=== PATIENT | female | born 1965 | race Caucasian/White ===

== ENCOUNTER → 2019-07-06 11:12 | Outpatient (CLI) | payer OTHER, MEDICAID, SELFPAY ==
[2019-07-06 12:24] LABS: Alanine Aminotransferase 25 IU/L (<35); Glucose 85 mg/dL (70-100)
[2019-07-06 12:42] LABS: Free T3, Triiodothyronine Free 3.77 pg/mL (2.77-5.27); T4 Total Thyroxine 7.87 ug/dL (5.5-11.0)
[2019-07-06 12:56] LABS: Thyroid Stimulating Hormone 2.34 uIU/mL (0.47-4.68)
[2019-07-06 13:00] LABS: Ferritin 11.3 ng/mL (11.1-264)
[2019-07-08 17:46] LABS: Insulin Level Total 3.6 uIU/mL (2.0-19.6)
[2019-07-09 16:17] LABS: EBV Virus IgM Ab < 36.00 U/mL (< 36.00)
== END ==
PROVIDERS: PCP Naturopath; Visit Provider Naturopath
DX: R53.83 Other fatigue (principal); R63.5 Abnormal weight gain
CPT/HCPCS: 36415; 82465; 82728; 82947; 83525; 83718; 84436; 84443; 84460; 84478; 84481; 86664; 86665

== ENCOUNTER → 2021-04-09 15:43 | Outpatient (CLI) | payer OTHER, MEDICAID, SELFPAY ==
[2021-04-09 18:21] LABS: Hematocrit 37.2 % (36-46); Hemoglobin 12.3 g/dL (12.0-16.0)
[2021-04-09 18:34] LABS: Iron 62 ug/dL (37-170)
[2021-04-09 18:44] LABS: Percent Iron Saturation 17 % (15-50); Total Iron Binding Capacity 359 ug/dL (265-497)
[2021-04-09 19:10] LABS: Ferritin 22 ng/mL (11-264)
== END ==
PROVIDERS: PCP Naturopath; Referring Provider Naturopath; Visit Provider Naturopath
DX: D50.9 Iron deficiency anemia, unspecified (principal); R53.83 Other fatigue; R63.5 Abnormal weight gain; J32.9 Chronic sinusitis, unspecified
CPT/HCPCS: 36415; 82728; 83540; 83550; 85014; 85018

== ENCOUNTER → 2021-09-17 11:30 | Outpatient (CLI) | payer OTHER, MEDICAID, SELFPAY ==
--- NOTE | 2021-09-17 | DI.CT.S_ITS ---
PROCEDURE: CT SINUS SCREEN WO CON INDICATIONS: Chronic pansinusitis TECHNIQUE: Noncontrast 3.0 mm axial images acquired from the frontal sinuses to the mid-sella, with coronal and sagittal reformats. For radiation dose reduction, the following was used: automated exposure control, adjustment of mA and/or kV according to patient size. COMPARISON: None. FINDINGS: Nearly complete opacification of the right maxillary sinus with mucosal thickening measuring up to 2.5 centimeters. Obstruction of the right maxillary sinus outflow tract due to mucosal thickening at the ostium and uncinate process. Bony thickening and sclerosis indicative of chronic/recurrent right maxillary sinusitis. There is a small Talya cell in the right infraorbital region. Remaining paranasal sinuses and mastoid air cells are clear. There is a polyp projecting posteriorly from the posterior right nasal cavity mucosa extending posteriorly into the nasopharynx (series 2, image 6 for example measuring up to 1.4 x 2.7 centimeters). IMPRESSION: Solid polypoid mass in the right posterior nasal cavity extending into the nasopharynx, arising from the right posterior nasal cavity mucosa. Acute on chronic maxillary sinusitis on the right. Dictated by: Gerard Whittington M.D. on 09/17/2021 at 11:45 Approved by: Gerard Whittington M.D. on 09/17/2021 at 11:49
== END ==
PROVIDERS: PCP Naturopath; Referring Provider Otolaryngology; Visit Provider Otolaryngology
DX: J01.00 Acute maxillary sinusitis, unspecified (principal); J32.4 Chronic pansinusitis; J33.0 Polyp of nasal cavity; R51.9 Headache, unspecified
CPT/HCPCS: 70486

== ENCOUNTER → 2021-10-16 14:27 | Outpatient (CLI) | payer OTHER, MEDICAID, SELFPAY ==
--- NOTE | 2021-10-16 14:30 | DI.RAD.S_ITS ---
PROCEDURE: XR HIP W PEL IF DONE RT 2V INDICATIONS: RT HIP PAIN TECHNIQUE: AP pelvis with lateral view(s) of the right hip(s). COMPARISON: None. FINDINGS: Bones: No fractures or dislocations. Pelvic ring appears intact. No suspicious bony lesions. Mild right hip osseous hypertrophy compatible with osteoarthritis. Soft tissues: The visualized bowel gas pattern is normal. No suspicious soft tissue calcifications. IMPRESSION: Mild right hip osteoarthritis. Dictated by: Isadora Haas MD, PhD on 10/16/2021 at 16:52 Approved by: Isadora Haas MD, PhD on 10/16/2021 at 16:53
== END ==
PROVIDERS: PCP Nurse Practitioner Family; Referring Provider Nurse Practitioner Family; Visit Provider Nurse Practitioner Family
DX: M16.11 Unilateral primary osteoarthritis, right hip (principal); M25.551 Pain in right hip
CPT/HCPCS: 73502

== ENCOUNTER 2022-01-30 13:18 | Day surgery (SDC) | payer OTHER, MEDICAID, SELFPAY ==
[2022-01-23 14:47] VITALS: BMI 36.6
[2022-01-30] VITALS (8 sets, daily range): BP systolic 122–137; BP diastolic 58–78; PULSE 74–93; RESP 15–26; TEMP 36.5–36.6; O2SAT 87–98; BMI 36.6
--- NOTE | 2022-01-30 | PATH_ITS ---
[facility] Accession Number: [id number] . 01 Material submitted: . sinus, maxillary - RIGHT MAXILLARY SINUS POLYP . 01 Diagnosis: Right Maxillary Sinus, Polypectomy: Sinonasal inflammatory polyps and scant bone fragments. Negative for malignancy. MRV 02/03/2022 1419 Local . 01 Electronically signed: . Karina Linares MD, Pathologist NPI- [id number] . 01 Gross description: . Received in formalin, labeled with the patient's name and designated 1. Right maxillary sinus polyp, are two 1.2-2.5 cm portions of parrish, glistening, edematous, and polypoid soft tissue with a detached 1.5 x 1.0 x 0.2 cm aggregate of parrish bony tissue. The specimen is entirely submitted as follows: A1: Smaller polyp. A2-A3: Larger polyp, bisected. A4: Detached bony tissue, following decalcification. (NANDO:[id number]) /R 02/01/2022 1241 Local . 01 Pathologist provided ICD-10: J32.0 . 01 CPT . 113288 Specimen Comment: A courtesy copy of this report has been sent to [phone] Performed at: [facility] [address] [place] [address], [place], [place] [id number] MD Rafi Alvarez MD Phone: [phone]
[2022-01-30] MEDS: LACTATED RINGERS 1,000 ML 42 ML IV ×2 (13:42→17:21)
[2022-01-30] MEDS: OXYMETAZOLINE NASAL SPRAY 15 ML 2 SPRAYS NASAL (13:48)
--- NOTE | 2022-01-30 14:55 | PM.PREOP ---
Pre-operative Note Interval Note History & Physical reviewed/Exam performed by Physician: Yes Changes to H&P: No
--- NOTE | 2022-01-30 14:57 | P.OP_ITS ---
Operative Date/Time/Diagnoses Date of procedure: 01/30/22 Time of procedure: 16:57 Pre-op diagnosis: Right chronic maxillary sinusitis, intranasal mass, nasal airway obstruction, intranasal synechiae Post-op diagnosis: same Procedure & Clinicians Procedure: 1. Right endoscopic maxillary antrostomy with tissue removal 2. Right endoscopic anterior ethmoidectomy 3. Right intranasal lysis of synechia Same procedure as scheduled: Yes Indications: 56-year-old female with the above diagnoses incompletely managed with medical therapy presents for the above procedure. Following discussion the material risks benefits complications and alternatives, she elected to proceed. She received medical clearance from her PCP 11/21, as well as preoperative anesthesia consult. She decided she is not interested in postoperative narcotic for pain control, will utilize Tylenol alternating with Advil every 3 hours. Surgeon: Mario Vail Click Yes if Unassisted: Yes Anesthesia Type: General and Local Operative Notes Findings: Pale polyp extending from posterior RIGHT maxillary sinus, likely from accessory os, sinus mucosa polypoid throughout and inflamed, a significant portion biopsied and resected. Purulence from maxillary sinus cultured. RIGHT septal deviation increased difficulty, 2 separate scar bands lysed ant/inf and mid to posterior to the mid septum over a spur. Specimen(s): other (RIGHT nasal polyp and maxillary sinus contents, RIGHT maxillary sinus culture) Estimated Blood Loss (mL): 125 Procedure in detail: Following identification and confirmation of consent as well as preoperative Afrin nasal spray, the patient was brought to the operating room suite and placed in the supine position. General endotracheal anesthesia was administered. Under endoscopic guidance the posterior and anterior superior insertion of the right middle turbinate was then infiltrated with local anesthet ic via spinal needle, as well as the visible polyp. The middle turbinate was slightly medialized and the uncinate process was identified with uncinectomy performed via the backbiting forceps and the microdebrider. The anterior portion of the middle turbinate was resected to improve post-op access to the sinus and for irrigation. A large maxillary antrostomy was performed, although the mucosa was inflamed, difficult to definitively identify the natural os. Inflamed tissue and mucosa including polyp was resected from within the sinus with forceps and the curved microdebrider. The large polyp was resected with forceps and sent as specimen. Anterior ethmoidectomy was performed by removing the ethmoid bulla with the microdebrider, again inflamed mucosa. Intermittent 1:1000 epi on small cottonoids was used for hemostasis, with a small amount of suction electrocautery on a setting of 10 as well. At case completion, 20/1000th of an inch silastic splint was placed on the right after utilizing forceps to lyse/resect the visible synechia from the lateral nasal wall to the septum. This was sutured anteriorly with a single 4 0 nylon. The procedure completed, sponge and needle counts were correct and the patient was extubated in the operating room and taken to recovery room in stable condition without known complication. Complications: none Post-operative Condition: stable Disposition: same day surgery Plan for aftercare: Nasal saline every hour while awake, begin irrigations t.i.d. tomorrow. Tylenol alternating with Advil for pain control. Elevate head of bed, no nose blowing, no straining for 2 weeks. Follow-up in 1 week
[2022-01-30] MEDS: LIDOCAINE 1% W/EPI 20 ML INJ (16:05)
[2022-01-30] MEDS: EPINEPHrine 1 MG/ML 6 MG TOP (16:06)
[2022-01-30] MEDS: ONDANSETRON 4 MG/2 ML INJ IV (17:17)
[2022-01-30] MEDS: fentaNYL 100 MCG/2 ML INJ IV (17:17)
[2022-01-30] MEDS: ACETAMINOPHEN 325 MG TABLET 975 MG PO (18:43)
== END 2022-01-30 19:02 | disposition home or self-care (01) ==
PROVIDERS: PCP Nurse Practitioner Family; Referring Provider Otolaryngology; Visit Provider Otolaryngology
PROC: (CPT 31231; principal; 2022-01-30 14:15)
DX: J32.0 Chronic maxillary sinusitis (principal); J34.89 Other specified disorders of nose and nasal sinuses; R51.9 Headache, unspecified; J33.8 Other polyp of sinus
CPT/HCPCS: 31254; 30560; 31267; 87070; 87075; 87077; 87147; 87186; 87205; A9270; J0171; J2250; J2405; J2704; J3010